=== PATIENT | male | born 1980 | race Caucasian/White ===

== ENCOUNTER 2023-11-22 12:30 | Emergency (ER) | payer BC ==
[~2023-11-22] VITALS: Ht 177.8 cm; Wt 130.5 kg
[~2023-11-22 12:30] MED LIST: PREDNISONE20 MG PO
[2023-11-22 12:38] VITALS: TEMP 97.4
[2023-11-22] MEDS ORDERED: Ondansetron 4 MG/2 ML VIAL IV ONE (13:00)
[2023-11-22] MEDS ORDERED: NS 1,000 ML IV ONE (13:00)
[2023-11-22 13:03] LABS: BASO % 0.2 % (0.0-2.0); EOS % 0.3 % (0.0-4.0); HEMATOCRIT 49.8 % (42.0-52.0); HEMOGLOBIN 17.5 g/dl (13.5-18.0); LYMPH # 1.3 K/mm3 (1.2-3.4); LYMPH % 13.3 % (20.0-51.0); MEAN CELL VOLUME 84 fl (80.0-100.0); MEAN CORPUSCULAR HEMOGLOBIN 29 pg (27-31); MEAN CORPUSCULAR HGB CONC 35 g/dl (33.0-37.0); MEAN PLATELET VOLUME 10.6 fl (7.4-10.4); MONO # 0.4 K/mm3 (0.1-0.6); MONO % 3.8 % (1.7-9.3); PLATELET COUNT 266 K/mm3 (130-400); RED BLOOD COUNT 5.96 M/mm3 (4.20-5.60)
[2023-11-22 13:13] LABS: ACETONE,SERUM NEGATIVE; ALANINE AMINOTRANSFERASE 35 U/L (0-55); ALBUMIN 4.2 gm/dL (3.5-5.0); ALKALINE PHOSPHATASE 89 U/L (40-150); ANION GAP 9 mmol/L (7-16); AST,SGOT 18 U/L (5-34); BILIRUBIN,TOTAL 1.2 mg/dL (0.2-1.2); BLOOD UREA NITROGEN 10 mg/dL (9-21); CARBON DIOXIDE 21 mmol/L (22-29); CHLORIDE 104 mmol/L (98-107); GLUCOSE 372 mg/dL (70-99); LIPASE 15 U/L (8-78); POTASSIUM 4.2 mmol/L (3.5-4.5); SODIUM 134 mmol/L (136-145); TOTAL PROTEIN 8.1 gm/dL (6.2-8.1)
[2023-11-22] MEDS ORDERED: Meclizine 25 MG TAB PO ONE (13:15)
[2023-11-22 14:31] LABS: COLLECTION METHOD CLEAN CATCH
[2023-11-22 15:00] LABS: URINE APPEARANCE Clear (CLEAR/HAZY); URINE BLOOD Negative (NEGATIVE); URINE COLOR Yellow (YELLOW); URINE GLUCOSE 2+ (NEGATIVE); URINE KETONE 2+ (NEGATIVE); URINE NITRATE Negative (NEGATIVE); URINE PROTEIN(semi-quant) Negative (NEGATIVE); URINE UROBILINOGEN 0.2 E.U/dL (0.2-1.0)
[2023-11-22 15:01] LABS: SQUAMOUS EPITHELIAL 0-2 /hpf (0-10); URINE BACTERIA Rare /hpf (NONE SEEN); URINE RBC 0-2 /hpf (0-2)
[2023-11-22] MEDS ORDERED: ZOFRAN ODT4 MG PO (15:31)
[2023-11-22] MEDS ORDERED: ANTIVERT 25MG25 MG PO (15:31)
[2023-11-22 15:39] VITALS: BP 124/84; PULSE 68
== END 2023-11-22 15:54 | disposition home or self-care (01) ==
LOC: COL.ER 12:30
PROVIDERS: Emergency Medicine
DX: E11.65 Type 2 diabetes mellitus with hyperglycemia (principal); Z79.84 Long term (current) use of oral hypoglycemic drugs
CPT/HCPCS: J2405; J7030